=== PATIENT | female | born 1975 | race Caucasian/White ===

== ENCOUNTER 2018-12-09 13:40 | Emergency (ER) | payer OTHER ==
[~2018-12-09] VITALS: Ht 160 cm; Wt 61.2 kg
[2018-12-09] MEDS ORDERED: OMEPRAZOLE40 MG (14:46)
[2018-12-09] MEDS ORDERED: ATORVASTATIN CA20 MG (14:46)
[2018-12-09] MEDS ORDERED: SINGULAIR4 M1 (14:46)
== END 2018-12-09 17:17 | disposition home or self-care (01) ==
LOC: ER 13:40
DX: J11.1 Influenza due to unidentified influenza virus with other respiratory manifestations (principal)

== ENCOUNTER 2022-07-03 06:00 | Day surgery (SDC) | payer OTHER ==
[~2022-07-03] VITALS: Ht 160 cm; Wt 70.3 kg
[~2022-07-03 06:00] MED LIST: ATORVASTATIN CA20 MG; OMEPRAZOLE20 MG PO; OMEPRAZOLE40 MG; SINGULAIR4 M1
== END 2022-07-03 16:20 | disposition home or self-care (01) ==
LOC: CIR.AMB 06:00
PROVIDERS: ATTEND Student in an Organized Health Care Education/Training Program
DX: N87.9 Dysplasia of cervix uteri, unspecified (principal); Z20.822 Contact with and (suspected) exposure to COVID-19; Z91.013 Allergy to seafood; E78.5 Hyperlipidemia, unspecified

== ENCOUNTER 2022-09-09 10:15 | Inpatient (IN) | payer OTHER ==
[~2022-09-09] VITALS: Ht 161.3 cm; Wt 70.3 kg
[2022-09-12] MEDS ORDERED: SIMETHICONE80 MG PO (15:40)
[2022-09-12] MEDS ORDERED: COLACE100 MG PO (15:40)
[2022-09-12] MEDS ORDERED: IBU800 MG PO (15:40)
[2022-09-12] MEDS ORDERED: PERCOCET 5-3251 EACH PO (15:40)
== END 2022-09-12 17:56 | disposition home or self-care (01) | DRG 743 ==
LOC: OB/GYN 09-11 05:41 → O/R 09-11 05:41 → OB/GYN 09-11 10:15
PROVIDERS: ADMIT Student in an Organized Health Care Education/Training Program; ATTEND Student in an Organized Health Care Education/Training Program
PROC: 0UT74ZZ Resection of Bilateral Fallopian Tubes, Percutaneous Endoscopic Approach (ICD-10-PCS; 2022-09-11)
PROC: 0UT24ZZ Resection of Bilateral Ovaries, Percutaneous Endoscopic Approach (ICD-10-PCS; 2022-09-11)
PROC: 0UT94ZZ Resection of Uterus, Percutaneous Endoscopic Approach (ICD-10-PCS; principal; 2022-09-11 15:00)
DX: D25.1 Intramural leiomyoma of uterus (principal); Z20.822 Contact with and (suspected) exposure to COVID-19